=== PATIENT | female | born 1990 | race Caucasian/White ===

== ENCOUNTER 2017-12-15 03:17 | Emergency (ER) | payer MEDICAID, SELFPAY ==
[2017-12-15 03:19] VITALS: BP 119/77; PULSE 92; RESP 18; TEMP 36.6; O2SAT 99; BMI 35.9
--- NOTE | 2017-12-15 03:41 | ED.DCSUM_ITS ---
- ER Visit Summary Date of Service: 12/15/17 Chief Complaint: Abdominal pain History of Present Illness: The patient is a 27 F presenting with abdominal pain , nausea, vomiting, diarrhea. She states she is 19 weeks . She is currently on Keflex for UTI. She states she had one episode of vomiting today. Denies blood in her stool or emesis. She is . She states she has intermittent sharp lower abdominal pain. She is not currently nauseated. She does not currently have any pain. No other complaints. Physical Examination: Vitals are stable. Patient is afebrile. Alert no acute distress. HEENT exam is unremarkable. Neck is supple. Lungs are clear and equal bilaterally. Heart is regular rate and rhythm. Abdomen is soft nontender. No guarding or rebound Extremities are unremarkable. Skin is warm and dry. Remainder of exam is unremarkable. Emergency Department Course and Treatment: heart tones 142. Patient currently has no pain or nausea. She denies any vaginal bleeding. She is advised to follow closely with her VISUAL SPECIALIST. She is advised to take her antibiotics until complete. She is advised return to ED for any worsening complaints. Disposition: Discharge home Impression: Abdominal pain in This note was generated with [employer] dictation software. It may contain incorrect words, spelling, and punctuation that were not noted in review of the chart prior to signing ED Disposition - Plan for ED Patient: Chief Complaint: Abd Pain Instructions: Care for a Healthy Baby Referrals: Care Physician,No Primary [Primary Care Provider] -
--- NOTE | 2017-12-15 04:40 | ED.DEP ---
ED Disposition - Plan for ED Patient: Chief Complaint: Abd Pain Instructions: Care for a Healthy Baby Referrals: Care Physician,No Primary [Primary Care Provider] -
[2017-12-15 04:46] VITALS: BP 119/62; PULSE 57; RESP 15; O2SAT 98
== END 2017-12-15 04:47 | disposition home or self-care (01) ==
LOC: ED 03:44
PROVIDERS: Emergency Provider Emergency Medicine
DX: O26.892 Other specified pregnancy related conditions, second trimester (principal); R10.9 Unspecified abdominal pain; R19.7 Diarrhea, unspecified; R11.2 Nausea with vomiting, unspecified; O23.42 Unspecified infection of urinary tract in pregnancy, second trimester; Z3A.19 19 weeks gestation of pregnancy
CPT/HCPCS: 99282

== ENCOUNTER 2018-05-24 09:56 | Inpatient (IN) | payer MEDICAID, SELFPAY ==
[2018-05-24] VITALS (19 sets, daily range): BP systolic 98–122; BP diastolic 30–78; PULSE 70–110; RESP 16–19; TEMP 36.2–37.2; O2SAT 97–100; BMI 42.7
[2018-05-24] MEDS: Lactated Ringers 1,000 ML 999 ML IV (10:40)
[2018-05-24 10:49] LABS: Hematocrit 33.3 % (37-47); Hemoglobin 10.3 g/dl (12.0-15.0); Mean Corp Hgb Conc 30.9 g/gl (32-36); Mean Corpuscular Hgb 24.2 pg (27.0-32.0); Mean Corpuscular Volume 78.2 fL (81-99); Mean Platelet Vol. 10.3 fl (6.2-12.0); Platelet Count 216 K/mm3 (150-450); RBC Distribution Width SD 41.1 fl (35.1-43.9); Red Blood Count 4.26 M/mm3 (4.2-5.4); White Blood Count 7.8 K/mm3 (4.4-11.0)
[2018-05-24 10:50] LABS: Scan Indicated on CBC? Y/N NO
[2018-05-24] MEDS: Lactated Ringers 1,000 ML 150 ML IV (11:36)
[2018-05-24] MEDS: Sodium Citrate/Citric Acid 30 ML UDC PO (11:49)
[2018-05-24] MEDS: Cefazolin 2 GM in 0.9% Normal Saline 100 ML IV (12:00)
--- NOTE | 2018-05-24 12:23 | FALS_PTH ---
PATIENT: LARRY PETE LOC: [facility] U#:[id number] AGE/SX: 28/F ROOM: WP004 RE05/24/[address]: Dr. Frieda Bowden, MDDOB: 1990 BED: 1 DIS: 05/26/2018 SPEC #: [id number] RECD: 05/25/18 12:19 STATUS: SANDRA YASMINE #: [id number] RAQUEL: 05/24/18 12:[address]: Frieda Bowden DEPT: SURGICAL PATHOLOGY RECD BY: Chris Storm ENTERED: 05/25/18 12:19 SP TYPE: FALL TUBES OTHR DR: Bonny Primary Care Phys Tissues: Fallopian tube Procedures: Surgery Specimen Level II HEADER OPERATION: Tubal ligation PRE-OP DIAGNOSIS: Desired sterilization TISSUE SUBMITTED: Fallopian tubes, suture in right tube MICROSCOPIC DIAGNOSIS Right and left fallopian tubes, partial salpingectomies: Two complete segments of fallopian tubes with no pathologic change. AM:mar 05/26/18 MICROSCOPIC DESCRIPTION Slides are reviewed. GROSS DESCRIPTION Received in fixative is one container labeled with the patient's name and designated suture in right tube. The specimen consists of two tubular pieces of marsh soft tissue with the right tube identified with a suture. The right tube with suture measures 0.7 cm in length and 0.5 cm in diameter and inked black. The left fallopian tube measures 1 cm in length and 1 cm in diameter. The entire specimen is submitted one cassette. Both pieces will be sectioned at the time of embedding. / MOHAN:mar 05/25/18 TC:4 CPT: 98776 x2
[2018-05-24] MEDS: Oxytocin 30 units/NS 500 ml 30 UNITS/500 ML IV.SOLN 167 UNITS IV (12:24)
[2018-05-24] MEDS: Ketorolac 30 MG/ML Syringe IV ×2 (12:30→18:15)
[2018-05-24] MEDS: Ondansetron 4 MG/2 ML Vial IV (12:30)
--- NOTE | 2018-05-24 12:59 | PCM.IMED.CSR ---
E-Xsecysl-Pejzyspnr PostOp Date of Procedure: 05/24/18 Primary Surgeon/Physician: Frieda Bowden MD chromosomal disorders counselor: Elda CHAVEZ Pre-op Diagnosis: Repeat Elective , Desires elective sterilization Post-Op Diagnosis: Repeat Elective , Desires elective sterilization Surgery/Procedure Performed: Repeat low transverse Section, Bilateral Tubal Occlusion with Filshie clips Description of Surgical Findings:: Operative note: After informed consent was obtained the patient was taken to the operating room she was given spinal anesthesia. He was placed in the supine position. She was then prepped and draped in normal sterile fashion. Once spinal anesthesia was found to be adequate skin incision was made with a scalpel in a Pfannenstiel fashion. It was carried down to the underlying layer of the fascia. Fascia was then incised midline with scalpel and extended laterally using curved mo. 2 straight Crawley's were placed in the superior aspect of the fascial edge and the rectus muscles were dissected off sharply. Attention was then turned to the inferior aspect where again the fascial edge was grasped with 2 straight Rock clamps tented up and the rectus muscle dissected off sharply. At this time the rectus muscles were grasped in the midline using 2 Allis clamps and scalpel was used to separate the rectus muscles. Using blunt force the peritoneum was then entered. Metzenbaums were used to take down the rectus muscles inferiorly as well as the peritoneum. At this time the vesicouterine peritoneum was identified. Metzenbaum scissors were used to create a bladder flap and then taken down digitally. Uterine incision was made in a low transverse fashion with the scalpel and then entered bluntly. Gentle opposing traction was placed to extend the uterine incision. The membranes were ruptured amniotic fluid clear. Infant's head was then brought to the uterine incision was delivered atraumatically followed by the rest infant's body. At this time delayed cord clamping was performed mouth nose were suctioned. Infant was then handed to the waiting nursery team. The placenta was then removed with gentle traction. The uterus was removed from the intra-abdominal cavity is wrapped in a moist lap. He was cleared of all clots and debris using a moist lap. Ring clamps were placed on the uterine angles. #1 Vicryl suture was used in a running locked fashion for the first layer. Followed by second hemostatic layer figure of eight sutures with #1 Vicryl. At this time then the uterus was placed back into abdominal cavity uterine incision was evaluated and noted to be of good hemostasis. Tubes and ovaries were evaluated they were normal. The tubes were grasped in an avascular area with the Bisi 0- plain gut suture was used to create a knuckle this was doubly secured. A portion of the tube was then resected using the Metzenbaum scissors. And the ends were coagulated using the Bovie. Great hemostasis was appreciated at this time the uterine incision was again evaluated good hemostasis was appreciated. Gurvinder placed. The peritoneum was grasped with Kellys. Peritoneum was reapproximated using #2 Vicryl suture in a running fashion. Gurvinder placed over muscle. The fascia was then reapproximated using #1 Vicryl in a running fashion. Subcutaneous layer was evaluated and Bovie was used for any small oozing that was noted per #2-0 plain gut suture was then used to reapproximate the subcutaneous layer 4-0 Vicryl on a Billy needle was used to reapproximate the skin in a subcutaneous fashion. Dry sterile dressing was applied. Instrument lap needle count were correct ?2. Anticipated normal postoperative course for this patient. Estimated Blood Loss: 800 Specimens Removed: Placenta Type of Anesthesia: Spinal - Admit VTE Documentation VTE Present on Admission: Yes VTE Mechan Device Prophylaxis: SCD's VTE Pharm Prophylaxis ordered?: Yes
[2018-05-24] MEDS: Lactated Ringers 1,000 ML 100 ML IV ×3 (13:15→21:09)
[2018-05-24] MEDS: Lactated Ringers 500 ML 999 ML IV (16:00)
[2018-05-25] VITALS (9 sets, daily range): BP systolic 99–120; BP diastolic 50–71; PULSE 88–108; RESP 14–18; TEMP 36.8–37.1; O2SAT 97–100
[2018-05-25] MEDS: Ketorolac 30 MG/ML Syringe IV ×3 (00:31→12:31)
[2018-05-25] MEDS: 0.9% Saline Lock 10 ML Syringe IV ×2 (06:30→12:31)
[2018-05-25 06:56] LABS: Hematocrit 29.1 % (37-47); Mean Corp Hgb Conc 30.9 g/gl (32-36); Mean Corpuscular Hgb 24.3 pg (27.0-32.0); Mean Corpuscular Volume 78.6 fL (81-99); Mean Platelet Vol. 10.2 fl (6.2-12.0); Platelet Count 217 K/mm3 (150-450); RBC Distribution Width SD 40.6 fl (35.1-43.9); White Blood Count 9.9 K/mm3 (4.4-11.0)
[2018-05-25 06:57] LABS: Scan Indicated on CBC? Y/N NO
--- NOTE | 2018-05-25 08:01 | PCM.PN.OB ---
Subjective: pt seen at bedside, doing well. reports good pain control. lochia mild. breast feeding. Voiding and passing flatus. - Physical Exam General: Alert, Oriented x3 Abdomen: Soft, Non-Distended, - - fundus firm, incision dressing dry and intact Extremities: No Calf Tenderness Vital Signs Temp Pulse Resp BP Pulse Ox 98.4 F 94 18 114/58 L 98 05/25/18 04:00 05/25/18 06:33 05/25/18 06:33 05/25/18 04:30 05/25/18 06:33 Oxygen Delivery Method Room Air Weight: 116.573 kg Body Mass Index (BMI) 42.7 Intake and Output for Last 24 Hours 05/23/18 05/24/18 05/25/18 23:59 23:59 23:59 Intake Total 6735 / 6735 715 / 715 Output Total 2700 / 2700 2150 / 2150 Balance 4035 / 4035 -1435 / -1435 Laboratory Tests Past 24 Hrs 05/24/18 05/24/18 05/24/18 10:40 10:40 16:35 WBC 7.8 RBC 4.26 Hgb 10.3 L Hct 33.3 L MCV 78.2 L MCH 24.2 L MCHC 30.9 L RDW 15.0 H RDW Differential 41.1 Plt Count 216 MPV 10.3 Blood Type A NEGATIVE Antibody Screen NEGATIVE Screen NEGATIVE Baby's Blood Type O POSITIVE Baby's ERIN NEGATIVE 05/25/18 05:39 WBC 9.9 RBC 3.70 L Hgb 9.0 L Hct 29.1 L MCV 78.6 L MCH 24.3 L MCHC 30.9 L RDW 15.0 H RDW Differential 40.6 Plt Count 217 MPV 10.2 Blood Type Antibody Screen Screen Baby's Blood Type Baby's ERIN Medical Necessity - Tobacco Use Smoking Status: Never smoker Assessment/Plan POD#1 doing well routine care pain mgmt ambulation
[2018-05-25] MEDS: Ibuprofen 600 MG Tablet PO (18:17)
[2018-05-25] MEDS: Acetaminophen 500 MG Tablet 1000 MG PO (23:31)
[2018-05-26 01:50] VITALS: BP 117/72; PULSE 89; RESP 14; TEMP 36.7; O2SAT 97
--- NOTE | 2018-05-26 08:23 | PCM.PN.OB ---
Subjective: pt seen at bedside, doing well. pt reports good pain control. lochia mild. Breast feeding going well. passing flatus. - Physical Exam General: Alert, Oriented x3 Abdomen: Soft, Non-Distended, - - fundus firm Extremities: No Calf Tenderness Vital Signs Temp Pulse Resp BP Pulse Ox 98.1 F 89 14 117/72 97 05/26/18 01:50 05/26/18 01:50 05/26/18 01:50 05/26/18 01:50 05/26/18 01:50 Oxygen Delivery Method Room Air Weight: 116.573 kg Body Mass Index (BMI) 42.7 Intake and Output for Last 24 Hours 05/24/18 05/25/18 05/26/18 23:59 23:59 23:59 Intake Total 6735 / 6735 715 / 715 Output Total 2700 / 2700 2150 / 2150 Balance 4035 / 4035 -1435 / -1435 Medical Necessity - Tobacco Use Smoking Status: Never smoker Assessment/Plan POD#2, doing well routine care pain mgmt dc home
--- NOTE | 2018-05-26 08:27 | DCINST_ITS ---
Discharge Diet: No Restrictions Discharge Activity: Return to Normal Activity, May Not Drive - for 2 weeks, May not drive while taking narcotic pain medications., May Shower, May Take a Tub Bath - in 7 days. May resume sexual activity in: 4-6 weeks Lifting Restrictions: 20 pounds Additional Activity Instructions:: Nothing in the vagina for 4-6 weeks. You may return to work/school in 6 weeks. Call your doctor if your incision/area has: Continuous Slow Oozing, Sudden Increased Bleeding, Increased Pain/ Swelling, Increased Redness, Foul Smelling Discharge Call your doctor if you observe: Fever of 101 or Higher, Using more than one pad per hour - for 2 hours Suture Line Care: Avoid Pulling/Pushing, Avoid Pinching/Bending Cleanse incision/area with: Keep Dressing Clean & Dry Additional Instructions: If you experience any of the following, contact your healthcare provider. * Bleeding that soaks a pad every hour for 2 hours * Fever 100.4 or higher * Unrelieved incision or abdominal pain * Swelling, redness, discharge or bleeding from your incision or episiotomy site * Your incision begins to separate * Problems urinating (including inability to urinate or burning while urinating). * Visual changes * Severe headache * Flu-like symptoms * Pain or redness in one of both of your breasts * Pain, warmth, tenderness or swelling in your legs, especially the calf area * Frequent nausea and vomiting * Symptoms of depression or anxiety If you experience any of the following, call 911 or go to the nearest Emergency Room. * Chest pain * Problems breathing * Seizure activity * Partial or complete paralysis of a body part, slurred speech, weakness or drooping of the face, or a sudden inability to walk or hold your balance Allergies/Adverse Reactions: Allergies No Known Allergies Allergy (Verified 12/15/17 03:18) Medications to take at Discharge No122/Iron/Folic Acid [ Multi Tablet] 1 each PO DAILY 12/15/17 Ibuprofen [Motrin] 600 mg PO Q6H PRN PRN #30 tablet 05/26/18 Oxycodone HCl/Acetaminophen [Percocet 5/325] 1 tablet PO Q6H PRN PRN 7 Days #20 tablet 05/26/18 Senna/Docusate Sodium [Senokot-S] 1 tab PO DAILY PRN #30 tablet 05/26/18 SimETHICONE [Mylicon] 80 mg PO PCHS PRN #30 tablet 05/26/18 The following prescriptions were given: Ibuprofen [Motrin] 600 mg PO Q6H PRN PRN #30 tablet PRN Reason: Mild Pain (-07/17) Oxycodone HCl/Acetaminophen [Percocet 5/325] 1 tablet PO Q6H PRN PRN 7 Days #20 tablet PRN Reason: Pain Senna/Docusate Sodium [Senokot-S] 1 tab PO DAILY PRN #30 tablet PRN Reason: Constipation SimETHICONE [Mylicon] 80 mg PO PCHS PRN #30 tablet PRN Reason: Indigestion/stomach pain Follow-Up: Call to make an appointment with your doctor for an incision check in 1-2 weeks. You will also need a 6 week post- follow up appointment. Test results from this visit will be discussed in further detail at your follow- up appointment, if applicable. Please Follow Up With: Frieda Bowden MD - Call to make an appointment for an incision check in 1-2 [phone] When: You will need a post- check in 6 weeks. Primary Care Physician: Care Physician,No Primary [Primary Care Provider] -
--- NOTE | 2018-05-26 08:27 | PCM.DC.BLA ---
Discharge Summary Date of Admission: 05/24/18 Date of Discharge: 05/26/18 Summary: Was admitted on 05/24/2018 for a scheduled repeat section and bilateral tubal ligation. Patient underwent a low transverse section along with a tubal ligation without complication. She was discharged home on postoperative day 2 in stable condition. - Physical Exam Vital Signs Temp Pulse Resp BP Pulse Ox 98.1 F 89 14 117/72 97 05/26/18 01:50 05/26/18 01:50 05/26/18 01:50 05/26/18 01:50 05/26/18 01:50 Oxygen Delivery Method Room Air Weight: 116.573 kg Body Mass Index (BMI) 42.7 Intake and Output for Last 24 Hours 05/24/18 05/25/18 05/26/18 23:59 23:59 23:59 Intake Total 6735 / 6735 715 / 715 Output Total 2700 / 2700 2150 / 2150 Balance 4035 / 4035 -1435 / -1435
[2018-05-26 08:28] VITALS: BP 118/63; PULSE 89; RESP 16; TEMP 36.4; O2SAT 95
[2018-05-26] MEDS: Ibuprofen 600 MG Tablet PO (10:18)
[2018-05-26 11:45] VITALS: BP 121/70; PULSE 100; RESP 18; TEMP 36.8; O2SAT 96
[2018-05-27 09:54] LABS: Pathology Specimen OB SEE PATHOLOGY REPORT
== END 2018-05-26 12:30 | disposition home or self-care (01) | DRG 540 ==
PROVIDERS: Admitting Provider Obstetrics & Gynecology; Referring Provider Obstetrics & Gynecology; Visit Provider Obstetrics & Gynecology
PROC: 10D00Z1 Extraction of Products of Conception, Low, Open Approach (ICD-10-PCS; CPT 59514; principal; 2018-05-24 11:45)
DX: O65.5 Obstructed labor due to abnormality of maternal pelvic organs (principal); O34.211 Maternal care for low transverse scar from previous cesarean delivery; N85.8 Other specified noninflammatory disorders of uterus; Z3A.40 40 weeks gestation of pregnancy; Z37.0 Single live birth; Z30.2 Encounter for sterilization
CPT/HCPCS: 85027; 85461; 86850; 86900; 88302; 90384; 99218; J7120; A4216; G0378; J2405; J2790